=== PATIENT | female | born 1955 | race Caucasian/White ===

== ENCOUNTER 2017-12-31 19:03 | Emergency (ER) | payer OTHER ==
[~2017-12-31 19:03] MED LIST: CARAFATE1 G1 PO; COUMADIN3 MG PO; DEXILANT; DEXILANT60 MG PO; FIORICET TABLE1 EACH PO; KEFLEX500 MG PO; LIDODERM700 MG TD; LISINOPRIL-HCT1 EAC3 PO; MULTIVITAMINS1 EAC7 PO; NASONEX17 GM NS; PATADAY2.5 ML OU; PHENERGAN25 M3 PO; POTASSIUM 25 M25 ME1; POTASSIUM CHLO10 ME1 PO; SULCRAFATE; TIZANIDINE HCL6 MG PO; WARFARIN SODIU7.5 MG PO; Z.0.BENTYL20 MG; Z.0.BENTYL20 MG PO; Z.0.COUMADIN10 MG; Z.0.CRESTOR10 MG PO; Z.0.LEXAPRO20 MG PO; Z.0.SOMA350 MG; Z.0.SOTALOL80 MG PO; Z.0.ULTRAM50 MG PO; Z.0.VESICARE10 MG; Z.0.XANAX0.5 MG PO; Z.0.ZYRTEC10 MG PO; [UNRECOGNIZED DRUG - CODE]
--- OUTSIDE RECORDS SUMMARY | 2017-12-31 19:06 | XMS REPORT ---
Author Author [facility] Address Unknown Phone Unavailable Care Team Providers Care Shift Production Associate Name Role Phone LENORE YANG Unavailable Unavailable MILO GONZALEZ Unavailable Unavailable Problems This patient has no known problems. Allergies, Adverse Reactions, Alerts This patient has no known allergies or adverse reactions. Medications This patient has no known medications. Results Test Description Test Time Test Comments Text Results Atomic Results Result Comments CT, CTA CORONARY, W/ JARAD EVAL 2017-12-31 17:59:00 Addendum BeginsREPORT STATUS:A Addendum: I agree with the previously described non vascular findings by Dr. Nunez. Signed: Yordy Mackenzie MDReport Verified Date/Time: 12/31/2017 17:59:40 Reading Location: [place] [address] Angio Body Reading RoomAddendum EndsFINAL REPORT CT coronary angiography, 31 December 2017 INDICATION: This is a 62 -year old lady with abnormal stress test, performed before colonoscopy, presents for assessment. This study is performed in an attempt to avoid an invasive procedure. Patient has no history of chest pain and can walk up to one mild without symptoms. However, lately, due to the increasing temperature, and injury of the knee, patient has not been walking that much. Technique: Spiral acquisition before and during intravenous contrast administration using a Eun multidetector CT scanner. Multi-planar 3-D volume-rendering reconstruction was performed using an independent workstation interactively by the interpreting physician as well as the 3-D specialist for optimal visualisation of the coronary anatomy. Consecutive thin slices (< 1mm) were obtained. Arrival heart rate was suboptimal, of at least 78 bpm. Patient takes sotalol 80 mg twice a day regularly. Due to borderline blood pressure, nitroglycerin was not given. Heart rate was still persistently 68. Per minute and pulsing window has to be widened. Medication administration: Oral metoprolol 175 mg;IV metoprolol 20 mg;S /L nitroglyercin 0 mg. Please refer to the contrast sheet scanned in the EPIC system for the amount and route of contrast given. This exam was performed according to our departmental dose-optimisation programme, which includes automated exposure control, adjustment of the mA and/or kV according to patient size and/or use of iterative reconstruction technique. Dose modulation, iterative reconstruction, and/or weight based adjustment of the mA/kV was utilized to reduce the radiation dose to as low as reasonably achievable. FINDINGS: VASCULAR: An electronic device body is identified in the left upper chest with pacing leads identified in the right-sided cardiac chambers. An ICD lead is identified in the RV. The thoracic aorta is normal in course, calibre, contour. No ectasia or aneurysmal dilation is present. There is no acute aortic pathology, specifically, there is no dissection, contained rupture, and intramural hematoma. The arch vessel branching pattern is normal. The central pulmonary artery is normal in calibre. The left ventricle is normal in size. Mild left atrial prominence is identified. There is normal atrio-ventricular and ventriculo-arterial concordance, and systemic and pulmonary venous return. The pericardium is normal appearance. There is no evidence of pericardial effusion. Calcium score and high-resolution, ECG synchronized computed tomography of the heart with attention to the coronary arteries was performed. Coronary calcification was analyzed using the [employer] system software. These are the results of the calcium score evaluation (bqykwvemy=683 HU): LM:=0 LAD:=0 LCX:=39 RCA:= 25 Agatston:=64 Reference ranges for calcium scores are provided as follows ( Thomson Clin Proc 1999; 74: 243-252): 0-10: minimal calcium 11-100: mild calcium 101-400 moderate calcium > 400 significant calcium The calcium score places patient between 50th to 75th percentile for her age group, using the THOMAS database. The coronary arteries have normal origins. The left main coronary artery arises from the left sinus of Valsalva and give rise to the left anterior descending of the left circumflex arteries in the normal fashion. The right coronary artery arises from the right sinus of Valsalva. The left main coronary artery is widely patent. The proximal, mid, and distal LAD is patent with no stenosis identified. However, as nitroglycerin was not given, the distal LAD near the apex is a small calibre vessel. There is likely a short segment superficial myocardial bridging at the juncture of the mid LAD, common finding in current era of multidetector CT. Two small diagonal arteries are seen that are widely patent proximally. The left circumflex artery is nondominant. Scattered calcific atherosclerosis is along the course of the LCx, eccentrically located, with no no stenosis identified.. A first OM branch is seen that is small in size. The right coronary artery is a dominant vessel. During systole, part of the right coronary artery is obscured by the pacemaker lead. At this segment, it is much better seen by multiphasic reconstruction using the 40% reconstruction. No stenosis is seen. Some scattered calcification is seen in the mid RCA, with no stenosis identified. The PDA is widely patent proximally. The PL branch is also widely patent proximally, supplying the inferolateral wall. NON-VASCULAR: The visualised thyroid gland appears unremarkable. The chest wall and mediastinum appears unremarkable. No significant adenopathy is identified. In the lung windows, no obvious endobronchial lesion is seen, and no pleural effusion is identified. Some subsegmental atelectatic changes identified especially in the left lower lobe, , as well as near the lingula region, for example at image 29 of the lower chest series. Overall, no suspicious pulmonary nodule is appreciated. Calcified granuloma is identified in the right lower lobe at the seen in the calcium score series. Limited images of the upper abdomen reveals no gross abnormality. A degree of fatty infiltration is identified with precontrast Hounsfield unit less than 40 in the liver. No acute bony pathology is identified. CONCLUSIONS: 1. Quantitative coronary artery calcium Agatston score of 64. The calcium score places patient between 50th to 75th percentile for her age group, using the THOMAS database. Mild and scattered calcification is seen in the LCx and RCA territories. 2. Normal coronary artery origins. The major epicardial coronary arteries including the left main coronary artery, the left anterior descending artery, left circumflex artery, and the right coronary artery are widely patent with no focal stenosis. Only scattered coronary artery calcification is seen indicating the presence of early atherosclerosis. The data will be sent for CT analysis, by an independent third constitution party vendor. Should the data be accepted for postprocessing, the result would be sent to [email or web address] when available. The pacemaker lead limits assessment and may cause the data could be rejected. 3. No acute pulmonary pathology. Evidence of prior granulomatous disease. 4. Normal thoracic aorta. No ectasia or aneurysmal dilation is seen. 5. Other findings as described above. Hepatic steatosis. 6. The non-vascular findings will be reviewed by the Printing Table Hand Radiologist and addendum will be added as needed. Signed: [place] uNnezeport Verified Date/Time: 12/31/2017 16:52:08 Reading Location: [place] [address] Cardiology MRI -CREATININE 2017-12-31 14:01:00 POC-CREATININE (BEAKER) (test pnfs=4285) 0.6 mg/dL 0.6-1.3 [address]ED [address] [address] POC-EGFR (BEAKER) (test hutb=6603) 102 mL/min/1.73M2 POCT-GLUCOSE [id number] 08:29:00* Test Item Value Reference Range Comments POC-GLUCOSE METER (BEAKER) (test wios=5431) 113 mg/dL 70-110 TESTED AT [place] [id number] [facility] [address] CREATINE KINASE (CK), TOTAL AND [id number] 06:06:00* Test Item Value Reference Range Comments CREATINE KINASE TOTAL (BEAKER) (test bozw=008) 44 U/L 29-200 CREATINE KINASE-MB (BEAKER) (test kmhk=344) 0.4 ng/mL 0.0-6.6 CREATINE KINASE-MB INDEX (BEAKER) (test fkye=900) 0.9 % CK-MB Reference Range:<6.7 Normal6.7-10.0 Borderline>10.0 AbnormalTROPONIN [id number] 06:06:00* Test Item Value Reference Range Comments TROPONIN I (BEAKER) (test fnft=487) < ng/mL 0.00-0.03 Troponin I (TnI) levels must be interpreted in the context of the presenting symptoms and the clinical findings. Elevated TnI levels indicate myocardial damage, but are not specific for ischemic heart disease. Elevated TnI levels are seen in patients with other cardiac conditions (including myocarditis and congestive heart failure), and slight TnI elevations occur in patients with other conditions, including sepsis, renal failure, acidosis, acute neurological disease, and persistent tachyarrhythmia.PROTHROMBIN TIME/[id number] 05:31:00 * Test Item Value Reference Range Comments PROTIME (ERMA) (test feer=141) 27.1 seconds 11.7-14.7 INR (BEAKER) (test jdwg=981) 2.5 <=5.9 RECOMMENDED COUMADIN/WARFARIN INR THERAPY RANGESSTANDARD DOSE: 2.0 - 3.0 Includes: PROPHYLAXIS for venous thrombosis, systemic embolization; TREATMENT for venous thrombosis and/or pulmonary embolus.HIGH RISK: Target INR is 2.5-3.5 for patients with mechanical heart valves.CREATINE KINASE (CK), TOTAL AND [id number] 20:46:00* Test Item Value Reference Range Comments CREATINE KINASE TOTAL (BEAKER) (test fzwc=170) 53 U/L 29-200 CREATINE KINASE-MB (BEAKER) (test etly=387) 0.4 ng/mL 0.0-6.6 CREATINE KINASE-MB INDEX (ADITYAAKER) (test eksb=950) 0.8 % CK-MB Reference Range:<6.7 Normal6.7-10.0 Borderline>10.0 AbnormalTROPONIN [id number] 20:46:00* Test Item Value Reference Range Comments TROPONIN I (ERMA) (test ozih=274) 0.01 ng/mL 0.00-0.03 Troponin I (TnI) levels must be interpreted in the context of the presenting symptoms and the clinical findings. Elevated TnI levels indicate myocardial damage, but are not specific for ischemic heart disease. Elevated TnI levels are seen in patients with other cardiac conditions (including myocarditis and congestive heart failure), and slight TnI elevations occur in patients with other conditions, including sepsis, renal failure, acidosis, acute neurological disease, and persistent tachyarrhythmia.B-TYPE NATRIURETIC FACTOR (BNP) 20:41:00* Test Item Value Reference Range Comments B-TYPE NATRIURETIC PEPTIDE (BEAKER) (test aqbu=511) 19 pg/mL 0-100 [id number] 20:38:00* Test Item Value Reference Range Comments MAGNESIUM (BEAKER) (test pmge=168) 2.3 mg/dL 1.6-2.6 BASIC METABOLIC [id number] 20:38:00* Test Item Value Reference Range Comments SODIUM (BEAKER) (test nnhf=209) 134 meq/L 136-145 POTASSIUM (BEAKER) (test altn=138) 3.9 meq/L 3.5-5.1 CHLORIDE (BEAKER) (test huta=755) 97 meq/L 98-107 CO2 (BEAKER) (test iyar=874) 27 meq/L 22-29 BLOOD UREA NITROGEN (BEAKER) (test hfte=094) 13 mg/dL 7-21 CREATININE (BEAKER) (test ztoe=089) 0.78 mg/dL 0.57-1.25 GLUCOSE RANDOM (BEAKER) (test auxl=840) 98 mg/dL 70-105 CALCIUM (BEAKER) (test bbxz=030) 9.8 mg/dL 8.4-10.2 EGFR (BEAKER) (test vbsk=9010) 75 mL/min/1.73 sq m ESTIMATED GFR IS NOT ACCURATE CREATININE CLEARANCE IN PREDICTING GLOMERULAR FILTRATION RATE. ESTIMATED GFR IS NOT APPLICABLE FOR DIALYSIS PATIENTS. RAD, CHEST, 1 VIEW, NON [id number] 20:32:00Reason for exam:->SHORTNESS OF BREATHReason for exam:->CHEST PAINIs the patient ?->NoFINAL REPORT Chest, 1 view. History: Shortness of breath. Comparison: 11/20/2008. Discussion: There is left-sided dual lead AICD in stable position. The trachea is midline. The lungs are symmetrically expanded without evidence for focal consolidation, pneumothorax, or significant pleural effusion. The cardiomediastinal silhouette is stable in appearance. No acute osseous abnormality is identified. IMPRESSION: No acute cardiopulmonary process identified. Signed: Yordy Mackenzie MDReport Verified Date/Time: 12/23/2017 20:32 :18 Reading Location: [address] Consult Reading Room /[id number] 20:28:00 * Test Item Value Reference Range Comments PROTIME (BEAKER) (test nrmu=074) 25.8 seconds 11.7-14.7 INR (BEAKER) (test ccya=331) 2.4 <=5.9 PARTIAL THROMBOPLASTIN TIME (BEAKER) (test nwwa=726) 38.4 seconds 22.5-36.0 RECOMMENDED COUMADIN/WARFARIN INR THERAPY RANGESSTANDARD DOSE: 2.0 - 3.0 Includes: PROPHYLAXIS for venous thrombosis, systemic embolization; TREATMENT for venous thrombosis and/or pulmonary embolus.HIGH RISK: Target INR is 2.5-3.5 for patients with mechanical heart valves.CBC W/PLT COUNT & AUTO [id number] 20:19:00* Test Item Value Reference Range Comments WHITE BLOOD CELL COUNT (BEAKER) (test zgip=859) 7.6 K/ L 3.5-10.5 RED BLOOD CELL COUNT (BEAKER) (test rhwa=833) 4.50 M/ L 3.93-5.22 HEMOGLOBIN (BEAKER) (test qmcz=510) 13.6 GM/DL 11.2-15.7 HEMATOCRIT (BEAKER) (test rnuq=281) 41.4 % 34.1-44.9 MEAN CORPUSCULAR VOLUME (BEAKER) (test zbzz=536) 92.0 fL 79.4-94.8 MEAN CORPUSCULAR HEMOGLOBIN (BEAKER) (test vfzk=155) 30.2 pg 25.6-32.2 MEAN CORPUSCULAR HEMOGLOBIN CONC (BEAKER) (test efig=644) 32.9 GM/DL 32.2- 35.5 RED CELL DISTRIBUTION WIDTH (BEAKER) (test paeh=400) 13.1 % 11.7-14.4 PLATELET COUNT (BEAKER) (test nihz=506) 317 K/CU MM 150-450 MEAN PLATELET VOLUME (BEAKER) (test kxja=166) 9.3 fL 9.4-12.3 NUCLEATED RED BLOOD CELLS (BEAKER) (test vrap=056) 0 /100 WBC 0-0 NEUTROPHILS RELATIVE PERCENT (BEAKER) (test unkq=320) 46 % LYMPHOCYTES RELATIVE PERCENT (BEAKER) (test iurw=621) 37 % MONOCYTES RELATIVE PERCENT (BEAKER) (test qwol=575) 12 % EOSINOPHILS RELATIVE PERCENT (BEAKER) (test setd=347) 4 % BASOPHILS RELATIVE PERCENT (BEAKER) (test eyvi=212) 1 % NEUTROPHILS ABSOLUTE COUNT (BEAKER) (test avrw=176) 3.51 K/ L 1.56-6.13 LYMPHOCYTES ABSOLUTE COUNT (BEAKER) (test mrng=029) 2.83 K/ L 1.18-3.74 MONOCYTES ABSOLUTE COUNT (BEAKER) (test bnue=934) 0.88 K/ L 0.24-0.36 EOSINOPHILS ABSOLUTE COUNT (BEAKER) (test hamx=875) 0.29 K/ L 0.04-0.36 BASOPHILS ABSOLUTE COUNT (BEAKER) (test kknh=684) 0.06 K/ L 0.01-0.08 IMMATURE GRANULOCYTES-RELATIVE PERCENT (BEAKER) (test vvrd=4797) 0 % 0-1
--- OUTSIDE RECORDS SUMMARY | 2017-12-31 19:06 | XMS REPORT | Clinical Summary ---
Author Author JOHNY [facility] Address Unknown Phone Unavailable Care Team Providers Care Loan Broker Name Role Phone PCP Unavailable Allergies Active Allergy Reactions Severity Noted Date Comments Cephalosporins Hives High 12/23/2017 Niacin Anaphylaxis High 12/23/2017 Ezetimibe Anaphylaxis High 12/23/2017 Codeine Nausea And Vomiting 12/23/2017 Nsaids (Non-Steroidal Other (See Comments) 12/23/2017 Gi bleed Anti-Inflammatory Drug) Trospium Chloride Hives 12/23/2017 Aspirin Rash Low 12/23/2017 Erythromycin Rash Low 12/23/2017 Iodine And Iodide Rash Low 12/23/2017 Containing Products Current Medications Prescription Sig. Disp. Refills Start End Date Status Date lisinopril-hydroCHLOROthi Take 1 tablet by mouth Active azide daily. (PRINZIDE,ZESTORETIC) 20-25 mg per tablet sotalol AF (BETAPACE AF) Take 80 mg by mouth 2 Active 80 MG tablet (two) times daily. potassium chloride SA Take 10 mEq by mouth 2 Active (K-DUR,KLOR-CON) 10 MEQ (two) times daily. tablet warfarin (COUMADIN) 5 MG Take 10 mg by mouth every Active tablet Wednesday, Wednesday, Wednesday. warfarin (COUMADIN) 7.5 Take 7.5 mg by mouth 4 Active MG tablet (four) times daily Wednesday,Wednesday, and Wednesday . rosuvastatin (CRESTOR) 5 Take 5 mg by mouth daily. Active MG tablet dexlansoprazole 60 mg Take 60 mg by mouth 2 Active capsule (two) times daily. sucralfate (CARAFATE) 1 Take 1 g by mouth 4 Active gram tablet (four) times daily. dicyclomine (BENTYL) 20 Take 20 mg by mouth 3 Active mg tablet (three) times daily. nortriptyline (PAMELOR) Take 50 mg by mouth Active 25 MG capsule nightly. DULoxetine (CYMBALTA) 30 Take 60 mg by mouth 2 Active MG capsule (two) times daily. ALPRAZolam (XANAX) 0.5 MG Take 0.5 mg by mouth 2 Active tablet (two) times daily as needed for Anxiety. traMADol (ULTRAM) 50 mg Take 50 mg by mouth every Active tablet 8 (eight) hours as needed for Pain (2 tablets). TiZANidine (ZANAFLEX) 6 Take 6 mg by mouth 3 Active MG capsule (three) times daily as needed for Muscle spasms. wmbyulby-qkgi-whm-folic Take by mouth. Active acid (SBTWVOMHQCQV-VJUZ-RCZIDA LS-FOLIC ACID) 3,500-18-0.4 unit-mg-mg Chew calcium carbonate Take 600 mg by mouth 2 Active (OS-JARAD) 600 mg calcium (two) times daily with (1,500 mg) Tab breakfast and dinner. mometasone (NASONEX) 50 2 sprays by Nasal route Active mcg/actuation nasal spray daily. dkiyiwpe-xhorridzl-fryiuw Place 1 drop into both Active ortisone (CORTISPORIN) eyes every night as 3.5-10,000-10 needed. mg-unit-mg/mL ophthalmic suspension Active Problems Problem Noted Date Shortness of breath 12/24/2017 Abnormal stress test 12/24/2017 Rhomboid muscle pain 12/24/2017 Encounters Date Type Specialty Care Team Description 12/31/2017 Hospital Radiology John Giang MD Positive cardiac stress Encounter test;Hypertension, unspecified type 12/28/2017 Outside Orders Central Scheduling John Giang MD Positive cardiac stress test (Primary Dx);Hypertension, unspecified type 12/24/2017 Orders Only General Internal Medicine 12[facility] - Dipak Fields MD (Primary Dx);Rhomboid 12/24/2017 muscle pain;Shortness of breath after 12/30/2016 Social History Tobacco Use Types Packs/Day Years Used Date Never Smoker Smokeless Tobacco: Never Used Alcohol Use Drinks/Week oz/Week Comments No Sex Assigned at Date Recorded Not on file Last Filed Vital Signs Vital Sign Reading Time Taken Blood Pressure 117/74 12/31/2017 4:00 PM CDT Pulse 64 12/31/2017 4:00 PM CDT Temperature 36.7 C (98.1 F) 12/31/2017 1:10 PM CDT Respiratory Rate 17 12/31/2017 2:25 PM CDT Oxygen Saturation 95% 12/31/2017 2:25 PM CDT Inhaled Oxygen - - Concentration Weight 87.3 kg (192 lb 6.4 oz) 12/31/2017 1:10 PM CDT Height 170.2 cm (5' 7") 12/31/2017 1:10 PM CDT Body Mass Index 30.13 12/31/2017 1:10 PM CDT Plan of Treatment Not on file Results * CTA heart coronary with calcium evaluation (12/31/2017 4:15 PM) Specimen Performing Laboratory [employer] Narrative Addendum Begins REPORT STATUS:A Addendum: I agree with the previously described non vascular findings by Dr. Nunez. Signed: Yordy Mackenzie MD Report Verified Date/Time:12/31/2017 17:59:40 Reading Location: [place] [address] Angio Body Reading Room Addendum Ends FINAL REPORT CT coronary angiography, 31 December 2017 [...] specialist for optimal visualisation of the coronary anatomy.Consecutive thin slices (< 1mm) were obtained. Arrival heart rate was suboptimal, of at least 78 bpm. Patient takes sotalol 80 mg twice a day regularly. Due to borderline blood pressure, nitroglycerin was not given. Heart rate was still persistently 68. Per minute and pulsing window has to be widened. Medication administration: Oral metoprolol 175 mg; IV metoprolol 20 mg; S/L nitroglyercin 0 mg. Please refer to the [...] contour. No ectasia or aneurysmal dilation is present.There is no acute aortic pathology, specifically, there is no dissection, contained rupture, and intramural hematoma.The arch vessel branching pattern is normal. The central pulmonary artery is normal in calibre. The left ventricle is normal in size. Mild left atrial prominence is identified. There is normal atrio-ventricular and ventriculo-arterial concordance, and systemic and pulmonary venous return.The pericardium is normal appearance. There is no evidence of pericardial effusion. Calcium score and high-resolution, ECG synchronized computed tomography of the heart with attention to the coronary arteries was performed. Coronary calcification was analyzed using the [employer] system software. These are the results of the calcium score evaluation (kkvkeqnal=660 HU): LM:=0 LAD:=0 LCX:=39 RCA:=25 Agatston:=64 Reference ranges for calcium scores are provided as follows (Thomson Clin Proc 1999; 74: 243-252): 0-10: minimal calcium 11-100: mild calcium 101-400 moderate calcium > 400significant calcium The calcium score places patient between 50th to 75th percentile for her age group, using the THOMAS database. The coronary arteries have normal origins.The left main coronary artery arises from the [...] No acute bony pathology is identified. CONCLUSIONS: 1.Quantitative coronary artery calcium Agatston score of 64. The calcium score places patient between 50th to 75th percentile for her age group, using the THOMAS database. Mild and scattered calcification is seen in the LCx and RCA territories. 2.Normal coronary artery origins. The major epicardial coronary arteries including the left main coronary artery, the left anterior descending artery, left circumflex artery, and the right coronary artery are widely patent with no focal stenosis. Only scattered coronary artery calcification is seen indicating the presence of early atherosclerosis. The data will be sent for CT analysis, by an independent third democrat vendor. Should the data be accepted for postprocessing, the result would be sent to PACS/33Across when available. The pacemaker lead limits assessment and may cause the data could be rejected. 3.No acute pulmonary pathology. Evidence of prior granulomatous disease. 4.Normal thoracic aorta. No ectasia or aneurysmal dilation is seen. 5.Other findings as described above. Hepatic steatosis. 6.The non-vascular findings will be reviewed by the Drawer In Stitch Bonding Machine Radiologist and addendum will be added as needed. Signed: Austin Nunez MD Report Verified Date/Time:12/31/2017 16:52:08 Reading Location: [place] [address] Cardiology MRI Procedure Note Interface, External Ris In - 12/31/2017 6:01 PM CDT Addendum Begins REPORT STATUS:A Addendum: I agree with the previously described non vascular findings by Dr. Nunez. Signed: Yordy Mackenzie MD Report Verified Date/Time: 12/31/2017 17:59:40 Reading Location: [place] [address] Angio Body Reading Room Addendum Ends FINAL REPORT CT coronary angiography, 31 December 2017 [...] be widened. Medication administration: Oral metoprolol 175 mg; IV metoprolol 20 mg; S/L nitroglyercin 0 mg. Please refer to the [...] performed. Coronary calcification was analyzed using the [employer] system software. These are the results of the calcium score evaluation (meaqurhxt=193 HU): LM:=0 LAD:=0 LCX:=39 RCA:=25 Agatston:=64 Reference ranges for calcium scores are provided as follows (Thomson Clin Proc 1999; 74: 243-252): 0-10: minimal [...] for CT analysis, by an independent third democrat vendor. Should the data be accepted for postprocessing, the result would be sent to PACS/33Across when available. The pacemaker lead limits assessment and may cause the data could be rejected. 3. No acute pulmonary pathology. Evidence of prior granulomatous disease. 4. Normal thoracic aorta. No ectasia or aneurysmal dilation is seen. 5. Other findings as described above. Hepatic steatosis. 6. The non-vascular findings will be reviewed by the Drawer In Stitch Bonding Machine Radiologist and addendum will be added as needed. Signed: Austin Nunez MD Report Verified Date/Time: 12/31/2017 16:52:08 Reading Location: [place] [address] Cardiology MRI * POC-Creatinine (12/31/2017 1:58 PM) Component Value Ref Range POC-Creatinine 0.6Comment: TESTED AT [address] 0.6 - 1.3 mg/[place] [address] POC-EGFR 102 mL/min/1.73M2 Specimen Performing Laboratory Blood [facility] [address] [address] * ARRYTHMIA IMPLANT REPORT - SCAN (12/27/2017 1:00 PM) * ECHOCARDIOGRAM REPORT - SCAN (12/24/2017 4:20 PM) * 2D Echo W/Doppler(CW/PW/Color) (12/24/2017 10:39 AM) Component Value Ref Range Ejection Fraction Specimen Performing Laboratory [facility] Narrative Transthoracic Echocardiography Report (TTE) Demographics Patient Name Rima CORONEL of Study 12/24/2017 DANE [id number] Female Visit Number [id number] Unknown [id number] Room Number 1142 Number Date of Birth1955Referring Physician Age62 year(s)Band Tacker Unruly Fitch Interpreting Physician SHAI York Procedure Type of Study TTE procedure:2DECHO W DOPPLER(CW/PW/COLOR) Indications:Dyspnea/SOB and Mitral valve prolapse. Height: 67 inches Weight: 87.09 kg (192 lbs) BSA: 1.99 m^2 BMI: 30.07 kg/m^2 Summary The left ventricle is chamber size (by PSLAX dimension) is normal (female - LVIDd 3.8-5.2cm) . No evidence of LV hypertrophy. All of the LV segments contract normally . All of the LV segments contract normally . Septal and apical motion is abnormal, likely related to conduction abnormality . Global LV systolic function normal . Estimated LVEF by qualitative assessment is normal (55-60%) . MVP present, MV prolapse affects both the anterior and posterior leaflet . Unable reliably assess MR severity, due to poor windows but appears mild to moderate by limited views. Unable to estimate peak systolic PA pressure; inadequate TR velocity signal. Signature Findings Left Ventricle The left ventricle is chamber size (by PSLAX dimension) is normal (female - LVIDd 3.8-5.2cm) . No evidence of LV hypertrophy. All of the LV segments contract normally . All of the LV segments contract normally . Septal and apical motion is abnormal, likely related to conduction abnormality . Global LV systolic function normal . Estimated LVEF by qualitative assessment is normal (55-60%) . Left AtriumLA size is severely enlarged (>48 ml/m2) . Right VentricleRV pacing wire is visualized . The right ventricular chamber size and systolic function are within normal limits. Right Atrium RA pacing wire is visualized . RA cavity size is normal . Aortic Valve Normal AoV structure and function. Mitral Valve Mild MV leaflet thickening. MVP present, MV prolapse affects both the anterior and posterior leaflet . Unable reliably assess MR severity, due to poor windows but appears mild to moderate by limited views. Tricuspid ValveA trace of tricuspid regurgitation. Unable to estimate peak systolic PA pressure; inadequate TR velocity signal. Pulmonic Valve Normal PV structure and function by limited views and Doppler. AortaAortic root size (SInus of Valsalva diameter) is normal . PericardiumNo evidence of pericardial effusion. IVC/SVC/PA/PV/PleuralThe estimated RA pressure by IVC dynamics 0-5 mmHg . Chambers/Structures Left Atrium LA Dimension: 3.82 cmLA Area: 22.51 cm^2 LA Volume: 79.54 ml LA Vol. Index: 40 ml/m^2 Left Ventricle LVIDd: 4.43 cm LV Septum Diastolic: 0.98 cm LV PW Diastolic: 0.97 cm Aorta Ao Root S of Palma.: 3.2 cm Doppler/Quantitative Measurements LVOT Peak Velocity: 1.01 m/s Peak Gradient: 4.04 mmHg Mean Velocity: 0.6 m/sMean Gradient: 1.83 mmHg LVOT VTI: 21.97 cm Procedure Note Interface, External Ris In - 12/24/2017 3:52 PM CDT Transthoracic Echocardiography Report (TTE) Demographics Patient Name MARGA CORONEL Date of Study 12/24/2017 DANE Gender Female Visit Number [id number] Race Unknown Room Number 1142 Number Date of 1955 Referring Physician Age 62 year(s) Band Tacker Blow Molder Abel Fitch Interpreting Physician SHAI York Procedure Type of Study TTE procedure:2DECHO W DOPPLER(CW/PW/COLOR) Indications:Dyspnea/SOB and Mitral valve prolapse. Height: 67 inches Weight: 87.09 kg (192 lbs) BSA: 1.99 m^2 BMI: 30.07 kg/m^2 Summary The left ventricle is chamber size (by PSLAX dimension) is normal (female - LVIDd 3.8-5.2cm) . No evidence of LV hypertrophy. All of the LV segments contract normally . All of the LV segments contract normally . Septal and apical motion is abnormal, likely related to conduction abnormality . Global LV systolic function normal . Estimated LVEF by qualitative assessment is normal (55-60%) . MVP present, MV prolapse affects both the anterior and posterior leaflet . Unable reliably assess MR severity, due to poor windows but appears mild to moderate by limited views. Unable to estimate peak systolic PA pressure; inadequate TR velocity signal. Signature Findings Left Ventricle The left ventricle is chamber size (by PSLAX dimension) is normal (female - LVIDd 3.8-5.2cm) . No evidence of LV hypertrophy. All of the LV segments contract normally . All of the LV segments contract normally . Septal and apical motion is abnormal, likely related to conduction abnormality . Global LV systolic function normal . Estimated LVEF by qualitative assessment is normal (55-60%) . Left Atrium LA size is severely enlarged (>48 ml/m2) . Right Ventricle RV pacing wire is visualized . The right ventricular chamber size and systolic function are within normal limits. Right Atrium RA pacing wire is visualized . RA cavity size is normal . Aortic Valve Normal AoV structure and function. Mitral Valve Mild MV leaflet thickening. MVP present, MV prolapse affects both the anterior and posterior leaflet . Unable reliably assess MR severity, due to poor windows but appears mild to moderate by limited views. Tricuspid Valve A trace of tricuspid regurgitation. Unable to estimate peak systolic PA pressure; inadequate TR velocity signal. Pulmonic Valve Normal PV structure and function by limited views and Doppler. Aorta Aortic root size (SInus of Valsalva diameter) is normal . Pericardium No evidence of pericardial effusion. IVC/SVC/PA/PV/Pleural The estimated RA pressure by IVC dynamics 0-5 mmHg . Chambers/Structures Left Atrium LA Dimension: 3.82 cm LA Area: 22.51 cm^2 LA Volume: 79.54 ml LA Vol. Index: 40 ml/m^2 Left Ventricle LVIDd: 4.43 cm LV Septum Diastolic: 0.98 cm LV PW Diastolic: 0.97 cm Aorta Ao Root S of Palma.: 3.2 cm Doppler/Quantitative Measurements LVOT Peak Velocity: 1.01 m/s Peak Gradient: 4.04 mmHg Mean Velocity: 0.6 m/s Mean Gradient: 1.83 mmHg LVOT VTI: 21.97 cm * POC-Glucose meter (12/24/2017 8:03 AM) Component Value Ref Range POC-Glucose Meter 113 (H)Comment: TESTED AT [address] 70 - 110 mg /dL [facility] [address] Specimen Performing Laboratory Blood [address] [address] * Troponin I (12/24/2017 4:59 AM) Only the most recent of 2 results within the time period is included. Component Value Ref Range Troponin I <0.01 0.00 - 0.03 ng/mL Specimen Performing Laboratory Blood - Arm, [address] [address] Narrative Troponin I (TnI) levels must be interpreted [...] failure, acidosis, acute neurological disease, and persistent tachyarrhythmia. * Prothrombin time/INR (12/24/2017 4:59 AM) Component Value Ref Range Protime 27.1 (H) 11.7 - 14.7 seconds INR 2.5 <=5.9 Specimen Performing Laboratory Blood - Arm, [address] [address] Narrative RECOMMENDED COUMADIN/WARFARIN INR THERAPY RANGES STANDARD DOSE: 2.0 - 3.0 Includes: PROPHYLAXIS for venous thrombosis, systemic embolization; TREATMENT for venous thrombosis and/or pulmonary embolus. HIGH RISK: Target INR is 2.5-3.5 for patients with mechanical heart valves. * Creatine Kinase (CK), Total and MB (12/24/2017 4:59 AM) Only the most recent of 2 results within the time period is included. Component Value Ref Range Total CK 44 29 - 200 U/L CK-MB 0.4 0.0 - 6.6 ng/mL MB Relative Index 0.9 % Specimen Performing Laboratory Blood - Arm, [address] [address] Narrative CK-MB Reference Range: <6.7Normal 6.7-10.0Borderline >10.0 Abnormal * ECG 12 lead (12/24/2017 4:44 AM) Only the most recent of 2 results within the time period is included. Specimen Performing Laboratory [facility] Narrative Ventricular Rate 59 BPM Atrial Rate 59 BPM P-R Interval 220 ms QRS Duration 122 ms Q-T Interval 468 ms QTC Calculation(Bazett) 463 ms P Clarkson 79 degrees R Clarkson 4 degrees T Clarkson 30 degrees Sinus bradycardia with 1st degree A-V block Non-specific intra-ventricular conduction delay Borderline ECG When compared with ECG of 20-DEC-2009 13:11, No significant change was found Confirmed by MD TANI, IHAB ([id number]) on 12/24/2017 2:03:57 PM Procedure Note Interface, External Ris In - 12/24/2017 2:04 PM CDT Ventricular Rate 59 BPM Atrial Rate 59 BPM P-R Interval 220 ms QRS Duration 122 ms Q-T Interval 468 ms QTC Calculation(Bazett) 463 ms P Clarkson 79 degrees R Clarkson 4 degrees T Clarkson 30 degrees Sinus bradycardia with 1st degree A-V block Non-specific intra-ventricular conduction delay Borderline ECG When compared with ECG of 20-DEC-2009 13:11, No significant change was found Confirmed by MD TANI, IHAB ([id number]) on 12/24/2017 2:03:57 PM * ED ECG Interpretation (12/24/2017 1:24 AM) Narrative Milo Gonzalez MD 12/24/20171:24 AM ECG/EKG Interpretation Date/Time: 12/24/2017 12:18 AM Performed by: MILO GONZALEZ Authorized by: MILO GONZALEZ The ECG was interpreted by ED physician. This ECG was not compared with previous ECG(s).The ECG is interpreted as sinus rhythm. Abnormal conduction noted: 1st degree. Clarkson is normal. Clinical Impression: non-specific ECGECG reviewed and does not meet STEMI criteria. Patient tolerance: Patient tolerated the procedure well with no immediate complications * XR chest 1 view portable / bedside (12/23/2017 8:27 PM) Specimen Performing Laboratory [facility] Narrative FINAL REPORT Chest, 1 view. History: Shortness of breath. Comparison: 11/20/2008. Discussion: There is left-sided dual lead AICD in stable position. The trachea is midline. The lungs are symmetrically expanded without evidence for focal consolidation, pneumothorax, or significant pleural effusion. The cardiomediastinal silhouette is stable in appearance. No acute osseous abnormality is identified. IMPRESSION: No acute cardiopulmonary process identified. Signed: Yordy Mackenzie MD Report Verified Date/Time:12/23/2017 20:32:18 Reading Location: [facility] [id number] Consult Reading Room Procedure Note Interface, External Ris In - 12/23/2017 8:34 PM CDT FINAL REPORT Chest, 1 view. History: Shortness of breath. Comparison: 11/20/2008. Discussion: There is left-sided dual lead AICD in stable position. The trachea is midline. The lungs are symmetrically expanded without evidence for focal consolidation, pneumothorax, or significant pleural effusion. The cardiomediastinal silhouette is stable in appearance. No acute osseous abnormality is identified. IMPRESSION: No acute cardiopulmonary process identified. Signed: Yordy Mackenzie MD Report Verified Date/Time: 12/23/2017 20:32:18 Reading Location: [facility] C013W Consult Reading Room * PT/PTT (12/23/2017 8:09 PM) Component Value Ref Range Protime 25.8 (H) 11.7 - 14.7 seconds INR 2.4 <=5.9 PTT 38.4 (H) 22.5 - 36.0 seconds Specimen Performing [place] [address] Narrative RECOMMENDED COUMADIN/WARFARIN INR THERAPY RANGES STANDARD DOSE: 2.0 - 3.0 Includes: PROPHYLAXIS for venous thrombosis, systemic embolization; TREATMENT for venous thrombosis and/or pulmonary embolus. HIGH RISK: Target INR is 2.5-3.5 for patients with mechanical heart valves. * CBC with platelet count + automated diff (12/23/2017 8:09 PM) Component Value Ref Range WBC 7.6 3.5 - 10.5 K/ L RBC 4.50 3.93 - 5.22 M/ L Hemoglobin 13.6 11.2 - 15.7 GM/DL Hematocrit 41.4 34.1 - 44.9 % MCV 92.0 79.4 - 94.8 fL MCH 30.2 25.6 - 32.2 pg MCHC 32.9 32.2 - 35.5 GM/DL RDW 13.1 11.7 - 14.4 % Platelets 317 150 - 450 K/CU MM MPV 9.3 (L) 9.4 - 12.3 fL nRBC 0 0 - 0 /100 WBC % Neutros 46 % % Lymphs 37 % % Monos 12 % % Eos 4 % % Baso 1 % # Neutros 3.51 1.56 - 6.13 K/ L # Lymphs 2.83 1.18 - 3.74 K/ L # Monos 0.88 (H) 0.24 - 0.36 K/ L # Eos 0.29 0.04 - 0.36 K/ L # Baso 0.06 0.01 - 0.08 K/ L Immature 0 0 - 1 % Granulocytes-Relative Specimen [place]forming [place] [address] * CBC with platelet count + automated diff (12/23/2017 8:09 PM) Specimen Performing Laboratory Blood Narrative The following orders were created for panel order CBC with platelet count + automated diff. Procedure Abnormality Status --------- - ------ CBC with platelet count ...[[id number]]AbnormalFinal result Please view results for these tests on the individual orders. * B-type natriuretic peptide (12/23/2017 8:09 PM) Component Value Ref Range BNP 19 0 - 100 pg/mL Specimen Performing Laboratory [address] [address] * Magnesium (12/23/2017 8:09 PM) Component Value Ref Range Magnesium 2.3 1.6 - 2.6 mg/dL Specimen Performing Laboratory [address] [address] * Basic Metabolic Panel (12/23/2017 8:09 PM) Component Value Ref Range Sodium 134 (L) 136 - 145 meq/L Potassium 3.9 3.5 - 5.1 meq/L Chloride 97 (L) 98 - 107 meq/L CO2 27 22 - 29 meq/L BUN 13 7 - 21 mg/dL Creatinine 0.78 0.57 - 1.25 mg/dL Glucose 98 70 - 105 mg/dL Calcium 9.8 8.4 - 10.2 mg/dL EGFR 75Comment: ESTIMATED GFR IS NOT ACCURATE mL/min/1.73 sq m CREATININE CLEARANCE IN PREDICTING GLOMERULAR FILTRATION RATE. ESTIMATED GFR IS NOT APPLICABLE FOR DIALYSIS PATIENTS. Specimen Performing Laboratory Blood [facility] [address] [address] after 12/30/2016
== END 2017-12-31 19:08 | disposition left against medical advice (07) ==
LOC: ER 19:03
DX: Z48.00 Encounter for change or removal of nonsurgical wound dressing (principal)

== ENCOUNTER → 2018-05-02 | Day surgery (SDC) | payer OTHER ==
[2018-04-27 15:15] LABS: BASOPHILS % 0.4 % (0.0-1.0); EOSINOPHILS # (AUTO) 0.3 (0.0-0.4); EOSINOPHILS % 5.8 % (0.0-6.0); HEMATOCRIT 36.6 % (34.2-44.1); HEMOGLOBIN 12.7 g/dL (12.0-16.0); LYMPHOCYTES # (AUTO) 1.9 (1.0-3.2); LYMPHOCYTES % 35.9 % (18.0-39.1); MEAN CORPUSCULAR HEMOGLOBIN 30.8 pg (28-32); MEAN CORPUSCULAR HGB CONC 34.7 g/dL (31-35); MEAN CORPUSCULAR VOLUME 88.8 fL (81-99); MONOCYTES # (AUTO) 0.5 (0.2-0.8); MONOCYTES % 10.1 % (4.4-11.3); NEUTROPHILS # (AUTO) 2.5 (2.1-6.9); NEUTROPHILS % 47.6 % (38.7-80.0); PLATELET COUNT 295 x10e3/uL (140-360); RED BLOOD COUNT 4.12 x10e6/uL (3.6-5.1); RED CELL DISTRIBUTION WIDTH 13.8 % (11.7-14.4)
[~2018-05-02] MED LIST changes: +CALTRATE 600 W1 EACH PO; +CENTRUM SILVER1 EAC3 PO; +CYMBALTA30 MG PO; +EPHEDRINE SULFATE INJ 50 MG/10 ML SYR ONE; +FENTANYL CITRATE/PF 100MCG/2 ML INJ ONE; +HYOSCYAMINE SULFATE 0.5 MG/ML INJ ONE; +MIDAZOLAM HCL 5 MG/ML VIAL ONE; +MOMETASONE FURO30 ML INH; +NORTRIPTYLINE H50 MG PO; +PROPOFOL IV EMULSION 10 MG/ML 50 ML VIAL ONE; +SUCRALFATE1 GM PO; +WARFARIN SODIUM5 MG PO
[2018-05-02 12:19] VITALS: BP 104/69
--- NOTE | 2018-05-02 13:01 | Operative Report ---
DATE OF PROCEDURE: May 02, 2018 REFERRING PHYSICIAN: Dr. Jamison Bishop. PROCEDURES PERFORMED: 1. Esophagogastroduodenoscopy with esophageal dilatation and biopsies. 2. Colonoscopy with polypectomy and biopsies. INDICATIONS FOR ESOPHAGOGASTRODUODENOSCOPY: Dysphagia, nausea. INDICATIONS FOR COLONOSCOPY: History of colon polyps, diarrhea. MEDICATION: Patient was done under MAC. Please see anesthesiologist's note. PROCEDURE: With the patient in the left lateral decubitus position, the flexible fiberoptic Olympus gastroscope was introduced into the esophagus under direct visualization without any difficulty. There was some patchy erythema noted in the distal esophagus. There was a mild stricture noted at the GE junction, and that was dilated to a size 52-Bhut[place] Khan. The scope was then advanced with ease into the stomach. Mucosa overlying the antrum and the body revealed some patchy erythema and low-grade edema, and biopsies were obtained and sent to stain for H. pylori. Hyperplastic-appearing polyps were noted in the body of the stomach, and some were partially excised with the cold biopsy forceps. The pylorus appeared to be of normal contour and shape, was intubated with ease, and the scope was advanced all the way to the 2nd portion of the duodenum. The scope was then withdrawn slowly. Mucosa overlying the proximal 2nd portion grossly appeared to be within normal limits. Biopsies were obtained to rule out sprue. The mucosa overlying the duodenal bulb appeared to be within normal limits. The scope was then withdrawn back into the stomach and retroflexed, and the mucosa overlying the fundus and the cardia appeared to be within normal limits. The scope was then straightened out. The stomach was decompressed. The scope was subsequently withdrawn. Patient tolerated the procedure well. IMPRESSION: 1. Distal esophagitis, mild. 2. Esophageal stricture at gastroesophageal junction dilated to size 52-Bhutanese Khan. 3. Gastritis biopsied. Biopsies sent to stain for H. pylori. 4. Gastric polyps, hyperplastic-appearing, body, some partially excised with the cold biopsy forceps. PLAN: Follow up histology. Continue Dexilant 60 mg 1 p.o. b.i.d. The patient was then turned around and after adequate lubrication of the anal canal, a flexible fiberoptic Olympus colonoscope was inserted into the rectum with ease and advanced all the way to the cecum. The ileocecal valve was intubated, and the scope was advanced into the terminal ileum. Biopsies were obtained. The scope was then withdrawn back into the colon. It was then withdrawn slowly. Mucosa overlying the ascending colon grossly appeared to be within normal limits. There were some patchy inflammatory changes noted in the transverse colon as well as the descending and the sigmoid, and random biopsies were obtained. One polyp was hot biopsied from the descending colon. The scope was then retroflexed into the distal rectum and small internal hemorrhoids were noted, none of which was actively bleeding. The scope was then straightened out. It was subsequently withdrawn. Patient tolerated the procedure well. IMPRESSION: 1. Mild patchy left-sided colitis. 2. Descending colon polyp hot biopsied. 3. Internal hemorrhoids, none actively bleeding. PLAN: Follow up histology. Initiate VSL#3 one p.o. daily. Start Bentyl 10 mg 1 p.o. t.i.d. Patient might benefit from a followup colonoscopy in 3 to 5 years. Job#: [id number] EV cc:JAMISON BISHOP MD
--- OUTSIDE RECORDS SUMMARY | 2018-05-10 11:53 | XMS REPORT | Clinical Summary ---
Author Author JOHNY [facility] Address Unknown Phone Unavailable Care Team Providers Care Senior Account Clerk Name Role Phone PCP Unavailable Allergies Active [...] times daily as needed for Muscle spasms. rtshryuj-qbyb-ksw-folic Take by mouth. Active acid (AZEGUGXEMVQK-KUFZ-FQZZIV LS-FOLIC ACID) 3,500-18-0.4 unit-mg-mg Chew calcium carbonate Take 600 mg by mouth 2 Active (OS-JARAD) 600 mg calcium (two) times daily with (1,500 mg) Tab breakfast and dinner. mometasone (NASONEX) 50 2 sprays by Nasal route Active mcg/actuation nasal spray daily. wqbiqbon-szobsljur-begnkv Place 1 drop into both Active ortisone (CORTISPORIN) eyes every night as 3.5-10,000-10 needed. mg-unit-mg/mL ophthalmic suspension Active Problems Problem Noted Date Shortness of breath 12/24/2017 Abnormal stress test 12/24/2017 Rhomboid muscle pain 12/24/2017 Encounters Date Type Specialty Care Team Description 12/31/2017 [place] Bleeding at insertion site (Primary Dx);Anticoagulant long-term use;Leukocytosis, unspecified type 12/31/2017 Hospital Radiology John Giang MD Positive cardiac stress Encounter test;Hypertension, unspecified type 12/28/2017 Outside Orders Central Scheduling John Giang MD Positive cardiac stress test (Primary Dx);Hypertension, unspecified type 12/24/2017 Orders Only General Internal Medicine 12/23[facility] test - Dipak Fields MD (Primary Dx);Rhomboid 12/24/2017 muscle pain;Shortness of breath after 05/01/2017 Social History Tobacco Use Types Packs/Day Years Used Date Never Smoker Smokeless Tobacco: Never Used Alcohol Use Drinks/Week oz/Week Comments No Sex Assigned at Date Recorded Not on file Last Filed Vital Signs Vital Sign Reading Time Taken Blood Pressure 169/98 12/31/2017 7:49 PM CDT Pulse 75 12/31/2017 7:49 PM CDT Temperature 37.1 C (98.8 F) 12/31/2017 7:49 PM CDT Respiratory Rate 18 12/31/2017 7:49 PM CDT Oxygen Saturation 98% 12/31/2017 7:49 PM CDT Inhaled Oxygen - - Concentration Weight 87.1 kg (192 lb) 12/31/2017 7:49 PM CDT Height 170.2 cm (5' 7") 12/31/2017 7:49 PM CDT Body Mass Index 30.07 12/31/2017 7:49 PM CDT Plan of Treatment Not on file Results * PT/aPTT (12/31/2017 9:31 PM) Only the most recent of 2 results within the time period is included. Component Value Ref Range Protime 26.9 (H) 11.7 - 14.7 seconds INR 2.5 <=5.9 PTT 36.9 (H) 22.5 - 36.0 seconds Specimen Performing Laboratory Blood [facility] [address] [address] Narrative RECOMMENDED COUMADIN/WARFARIN INR THERAPY RANGES STANDARD DOSE: 2.0 - 3.0 Includes: PROPHYLAXIS for venous thrombosis, systemic embolization; TREATMENT for venous thrombosis and/or pulmonary embolus. HIGH RISK: Target INR is 2.5-3.5 for patients with mechanical heart valves. * CBC with platelet count + automated diff (12/31/2017 9:31 PM) Only the most recent of 2 results within the time period is included. Component Value Ref Range WBC 15.6 (H) 3.5 - 10.5 K/L RBC 4.36 3.93 - 5.22 M/L Hemoglobin 13.2 11.2 - 15.7 GM/DL Hematocrit 39.4 34.1 - 44.9 % MCV 90.4 79.4 - 94.8 fL MCH 30.3 25.6 - 32.2 pg MCHC 33.5 32.2 - 35.5 GM/DL RDW 13.0 11.7 - 14.4 % Platelets 334 150 - 450 K/CU MM MPV 9.3 (L) 9.4 - 12.3 fL nRBC 0 0 - 0 /100 WBC % Neutros 81 % % Lymphs 12 % % Monos 7 % % Eos 0 % % Baso 0 % # Neutros 12.65 (H) 1.56 - 6.13 K/L # Lymphs 1.82 1.18 - 3.74 K/L # Monos 1.04 (H) 0.24 - 0.36 K/L # Eos 0.00 (L) 0.04 - 0.36 K/L # Baso 0.01 0.01 - 0.08 K/L Immature 1 0 - 1 % Granulocytes-Relative Specimen Performing [place] [address] * CBC with platelet count + automated diff (12/31/2017 9:31 PM) Only the most recent of 2 results within the time period is included. Specimen Performing Laboratory Blood Narrative The following orders were created for panel order CBC with platelet count + automated diff. Procedure Abnormality Status --------- ------ CBC with platelet count ...[[id number]]AbnormalFinal result Please view results for these tests on the individual orders. * CTA heart coronary with calcium evaluation (12/31/2017 4:15 PM) Specimen Performing Laboratory [place] Narrative Addendum Begins REPORT STATUS:A Addendum: For billing requirement, an addendum needed to be dictated regarding the CT analysis (CT-FFR) performed by an independent third democrat vendor. The report is being scanned to PACS, and can also be seen in the media tab. Overall, the computer interpretation indicate no obstructive coronary artery disease is seen in the all three coronary territories. The final conclusion as well as the clinical interpretation remains unchanged. Signed: Austin Nunez MD Report Verified Date/Time:01/03/2018 18:29:21 Reading Location: [place] [address] Cardiology MRI Addendum Ends Addendum Begins REPORT STATUS:A Addendum: I agree with the previously described non vascular findings by Dr. Nunez. Signed: Yordy Mackenzie MD Report Verified Date/Time:12/31/2017 17:59:40 Reading Location: [place] [address] Angio Body Reading Room Addendum Ends FINAL [...] performed. Coronary calcification was analyzed using the TeaMobi system software. These are the results of the calcium score evaluation (pzoaxgkzq=255 HU): LM:=0 LAD:=0 LCX:=39 RCA:=25 Agatston:=64 Reference [...] postprocessing, the result would be sent to PACS/OyaGen when available. The pacemaker lead limits assessment and may cause the data could be rejected. 3.No acute pulmonary pathology. Evidence of prior granulomatous disease. 4.Normal thoracic aorta. No ectasia or aneurysmal dilation is seen. 5.Other findings as described above. Hepatic steatosis. 6.The non-vascular findings will be reviewed by the Community Sports Coordinator Radiologist and addendum will be added as needed. Signed: Austin Nunez MD Report Verified Date/Time:12/31/2017 16:52:08 Reading Location: [place] [address] Cardiology MRI Procedure Note Interface, External Ris In - 01/03/2018 6:31 PM CDT Addendum Begins REPORT STATUS:A Addendum: For billing requirement, an addendum needed to be dictated regarding the CT analysis (CT-FFR) performed by an independent third democrat vendor. The report is being scanned to PACS, and can also be seen in the media tab. Overall, the computer interpretation indicate no obstructive coronary artery disease is seen in the all three coronary territories. The final conclusion as well as the clinical interpretation remains unchanged. Signed: Austin Nunez MD Report Verified Date/Time: 01/03/2018 18:29:21 Reading Location: [place] [address] Cardiology MRI Addendum Ends Addendum Begins REPORT STATUS:A Addendum: I agree with the previously described non vascular findings by Dr. Nunez. Signed: Yordy Mackenzie MD Report Verified Date/Time: 12/31/2017 17:59:40 Reading Location: [facility] [address] Angio Body Reading Room Addendum Ends FINAL [...] performed. Coronary calcification was analyzed using the TeaMobi system software. These are the results of the calcium score evaluation (borylbdmk=223 HU): LM:=0 LAD:=0 LCX:=39 RCA:=25 Agatston:=64 Reference [...] postprocessing, the result would be sent to PACS/OyaGen when available. The pacemaker lead limits assessment and may cause the data could be rejected. 3. No acute pulmonary pathology. Evidence of prior granulomatous disease. 4. Normal thoracic aorta. No ectasia or aneurysmal dilation is seen. 5. Other findings as described above. Hepatic steatosis. 6. The non-vascular findings will be reviewed by the Community Sports Coordinator Radiologist and addendum will be added as needed. Signed: Austin Nunez MD Report Verified Date/Time: 12/31/2017 16:52:08 Reading Location: [place] [address] Cardiology MRI * POC-Creatinine (12/31/2017 1:58 PM) Component Value Ref Range POC-Creatinine 0.6Comment: TESTED AT [facility] [address] [place] [address] 0.6 - 1.3 mg/[place] [address] POC-EGFR 102 mL/min/1.73M2 Specimen Performing Laboratory Blood [facility] [address] [address] * ARRYTHMIA IMPLANT REPORT - SCAN (12/27/2017 1:00 PM) * ECHOCARDIOGRAM REPORT - SCAN (12/24/2017 4:20 PM) * 2D Echo W/Doppler(CW/PW/Color) (12/24/2017 10:39 AM) Component Value Ref Range Ejection Fraction Specimen Performing Laboratory [facility] CPACS Narrative Transthoracic Echocardiography Report (TTE) Demographics Patient Name Rima DELGADO of Study 12/24/2017 DANE [id number] Visit Number [id number] Room Number 1142 Number Date of Birth1955Referring Physician Age62 year(s)Real Estate Associate AnalystAlex Physician SHAI Kramer Procedure Type of Study TTE procedure:2DECHO W [...] Echocardiography Report (TTE) Demographics Patient Name MARGA DELGADO Date of Study 12/24/2017 DANE Gender Female Visit Number [id number] Race Unknown Room Number 1142 Number Date of 1955 Referring Physician Age 62 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 Component Value Ref Range Troponin I <0.01 0.00 - 0.03 ng/mL Specimen Performing Laboratory Blood - Arm, [address] [address] Narrative Troponin I (TnI) levels must be [...] <=5.9 Specimen Performing Laboratory Blood - [place], [address] [address] Narrative RECOMMENDED COUMADIN/WARFARIN INR THERAPY RANGES STANDARD [...] % Specimen Performing Laboratory Blood - Arm, [address] [address] Narrative CK-MB Reference Range: <6.7Normal 6.7-10.0Borderline >10.0 Abnormal * ECG 12 lead (12/24/2017 4:44 AM) Only the most recent of 2 results within the time period is included. Specimen Performing Laboratory [facility] Narrative Ventricular Rate 59 BPM Atrial Rate 59 BPM P-R Interval 220 ms QRS Duration 122 ms Q-T Interval 468 ms QTC Calculation(Bazett) 463 ms P [place] 79 degrees R [place] 4 degrees T [place] 30 degrees Sinus bradycardia with 1st degree A-V block Non-specific intra-ventricular conduction delay Borderline ECG When compared with ECG of 28-MAY-2010 13:11, No significant change was found Confirmed by MD TANI, IHAB ([id number]) on 12/24/2017 2:03:57 PM Procedure Note Interface, External Ris In - 12/24/2017 2:04 PM CDT Ventricular Rate 59 BPM Atrial Rate 59 BPM P-R Interval 220 ms QRS Duration 122 ms Q-T Interval 468 ms QTC Calculation(Bazett) 463 ms P [place] 79 degrees R [place] 4 degrees T [place] 30 degrees Sinus bradycardia with 1st degree [...] sinus rhythm. Abnormal conduction noted: 1st degree. [place] is normal. Clinical Impression: non-specific ECGECG reviewed [...] MD Report Verified Date/Time:12/23/2017 20:32:18 Reading Location: [address] Consult Reading Room Procedure Note Interface, External [...] Report Verified Date/Time: 12/23/2017 20:32:18 Reading Location: [facility] [id number] Consult Reading Room * B-type natriuretic peptide (12/23/2017 8:09 PM) Component Value Ref Range BNP 19 0 - 100 pg/mL Specimen Performing Laboratory Blood [address] [address] * Magnesium (12/23/2017 8:09 PM) Component Value Ref Range Magnesium 2.3 1.6 - 2.6 mg/dL Specimen Performing Laboratory Blood [address] [address] * Basic Metabolic Panel (12/23/2017 8:09 PM) [...] FOR DIALYSIS PATIENTS. Specimen Performing Laboratory Blood [address] [address] after 05/01/2017
== END | disposition home or self-care (01) ==
LOC: OR 08:53
PROVIDERS: ATTEND Internal Medicine Gastroenterology
DX: Z12.11 Encounter for screening for malignant neoplasm of colon (principal); D12.4 Benign neoplasm of descending colon; K31.7 Polyp of stomach and duodenum; K29.70 Gastritis, unspecified, without bleeding; K22.2 Esophageal obstruction; K51.50 Left sided colitis without complications; K64.8 Other hemorrhoids; K20.9 Esophagitis, unspecified; K21.9 Gastro-esophageal reflux disease without esophagitis; E11.9 Type 2 diabetes mellitus without complications; M79.7 Fibromyalgia; J45.909 Unspecified asthma, uncomplicated; I10 Essential (primary) hypertension; F41.9 Anxiety disorder, unspecified; Z88.8 Allergy status to other drugs, medicaments and biological substances; Z88.6 Allergy status to analgesic agent; Z91.041 Radiographic dye allergy status; Z01.810 Encounter for preprocedural cardiovascular examination; Z01.812 Encounter for preprocedural laboratory examination; Z79.01 Long term (current) use of anticoagulants; Z95.810 Presence of automatic (implantable) cardiac defibrillator
CPT/HCPCS: 36415; 43239; 43450; 45380; 45384; 85025; 93005; J1980; J2250; 45378

== ENCOUNTER → 2020-10-16 | Day surgery (SDC) | payer OTHER ==
[2020-10-11 14:13] LABS: BASOPHILS % 0.6 % (0.0-1.0); EOSINOPHILS # (AUTO) 0.2 (0.0-0.4); HEMATOCRIT 39.3 % (34.2-44.1); LYMPHOCYTES # (AUTO) 1.8 (1.0-3.2); LYMPHOCYTES % 36.1 % (18.0-39.1); MEAN CORPUSCULAR HEMOGLOBIN 30.4 pg (28-32); MEAN CORPUSCULAR HGB CONC 33.1 g/dL (31-35); MONOCYTES # (AUTO) 0.5 (0.2-0.8); MONOCYTES % 9.3 % (4.4-11.3); NEUTROPHILS # (AUTO) 2.5 (2.1-6.9); NEUTROPHILS % 49.8 % (38.7-80.0); PLATELET COUNT 258 x10e3/uL (140-360); RED BLOOD COUNT 4.27 x10e6/uL (3.6-5.1); RED CELL DISTRIBUTION WIDTH 12.7 % (11.7-14.4)
[~2020-10-16] MED LIST changes: -EPHEDRINE SULFATE INJ 50 MG/10 ML SYR ONE; +EPHEDRINE SULFATE INJ 50 MG/ML VIAL ONE; +FLONASE ALLERG9.9 ML INH; +LIDOCAINE HCL 2% LOCAL INJ 5 ML SDV VIAL INJ ONE; +LISINOPRIL10 MG PO; +METOCLOPRAMIDE HCL 10 MG/2ML VIAL ONE; +MIDAZOLAM HCL 2 MG/2 ML VIAL ONE; -MIDAZOLAM HCL 5 MG/ML VIAL ONE; +PANTOPRAZOLE 40 MG 10ML VIAL ONE; -PHENERGAN25 M3 PO; +PHENERGAN25 M3 RC; +PROPOFOL IV EMULSION 10 MG/ML 20 ML VIAL ONE; -PROPOFOL IV EMULSION 10 MG/ML 50 ML VIAL ONE
[2020-10-16 13:48] LABS: INR 0.95; PROTHROMBIN TIME 13.2 seconds (11.9-14.5)
[2020-10-16 13:49] LABS: PARTIAL THROMBOPLASTIN TIME 30.6 seconds (23.8-35.5)
[2020-10-16 18:20] VITALS: BP 127/88
[2020-10-16 18:42] LABS: WBC,FECAL (FECAL LACTOFERRIN) NEGATIVE (NEGATIVE)
[2020-10-17 12:50] LABS: C DIFFICILE TOXIN A&B AMP PROB NEGATIVE (NEGATIVE)
== END | disposition home or self-care (01) ==
LOC: OR 12:47
PROVIDERS: ATTEND Internal Medicine Gastroenterology
DX: K20.90 Esophagitis, unspecified without bleeding (principal); D12.2 Benign neoplasm of ascending colon; K31.7 Polyp of stomach and duodenum; K29.50 Unspecified chronic gastritis without bleeding; K51.50 Left sided colitis without complications; K31.89 Other diseases of stomach and duodenum; K62.89 Other specified diseases of anus and rectum; K64.8 Other hemorrhoids; I44.0 Atrioventricular block, first degree; M79.7 Fibromyalgia; G43.909 Migraine, unspecified, not intractable, without status migrainosus; J45.909 Unspecified asthma, uncomplicated; R00.1 Bradycardia, unspecified; I47.9 Paroxysmal tachycardia, unspecified; I10 Essential (primary) hypertension; E78.5 Hyperlipidemia, unspecified; I25.10 Atherosclerotic heart disease of native coronary artery without angina pectoris; I34.1 Nonrheumatic mitral (valve) prolapse; E11.9 Type 2 diabetes mellitus without complications; K76.0 Fatty (change of) liver, not elsewhere classified; M06.9 Rheumatoid arthritis, unspecified; Z88.8 Allergy status to other drugs, medicaments and biological substances; Z91.041 Radiographic dye allergy status; Z88.6 Allergy status to analgesic agent; Z88.1 Allergy status to other antibiotic agents; Z01.810 Encounter for preprocedural cardiovascular examination; Z01.812 Encounter for preprocedural laboratory examination; Z79.01 Long term (current) use of anticoagulants; Z68.28 Body mass index [BMI] 28.0-28.9, adult; Z86.16 Personal history of COVID-19; Z95.810 Presence of automatic (implantable) cardiac defibrillator; Z80.0 Family history of malignant neoplasm of digestive organs
CPT/HCPCS: 36415 ×2; 43239; 43251; 43450; 45380; 45385; 82948; 83630; 83993; 85025; 85610; 85730; 87045; 87177; 87328; 87493; 93005; C9113; J1980; J2001; J2250; J2704; J2765; J3010; 45378; 45384

== ENCOUNTER → 2024-04-07 | Day surgery (SDC) | payer MEDICARE, OTHER ==
[2024-04-04 12:16] LABS: BASOPHILS % 0.8 % (0.0-1.0); EOSINOPHILS # (AUTO) 0.2 (0.0-0.4); EOSINOPHILS % 3.3 % (0.0-6.0); HEMATOCRIT 37.6 % (34.2-44.1); HEMOGLOBIN 12.3 g/dL (12.0-16.0); LYMPHOCYTES # (AUTO) 1.8 (1.0-3.2); LYMPHOCYTES % 36.4 % (18.0-39.1); MEAN CORPUSCULAR HEMOGLOBIN 29.9 pg (28-32); MEAN CORPUSCULAR HGB CONC 32.7 g/dL (31-35); MEAN CORPUSCULAR VOLUME 91.3 fL (81-99); MONOCYTES # (AUTO) 0.4 (0.2-0.8); MONOCYTES % 8.7 % (4.4-11.3); NEUTROPHILS # (AUTO) 2.5 (2.1-6.9); NEUTROPHILS % 50.6 % (38.7-80.0); PLATELET COUNT 240 x10e3/uL (140-360); RED BLOOD COUNT 4.12 x10e6/uL (3.6-5.1); RED CELL DISTRIBUTION WIDTH 13.1 % (11.7-14.4); WHITE BLOOD COUNT 4.92 x10e3/uL (4.8-10.8)
[~2024-04-07] MED LIST changes: +ACIPHEX20 MG PO; +ADVAIR 250-501 EACH INH; +AMLODIPINE BES2.5 MG PO; -EPHEDRINE SULFATE INJ 50 MG/ML VIAL ONE; +GLIPIZIDE ER5 MG PO; -HYOSCYAMINE SULFATE 0.5 MG/ML INJ ONE; +MELATONIN10 M1; -METOCLOPRAMIDE HCL 10 MG/2ML VIAL ONE; -MIDAZOLAM HCL 2 MG/2 ML VIAL ONE; +NEURONTIN300 MG PO; +ONDANSETRON HCL INJ 2MG/ML 2ML 2 MG/ML VIAL ONE; -PANTOPRAZOLE 40 MG 10ML VIAL ONE
[2024-04-07] MEDS: LACTATED RINGER'S 1,000 ML ONE (14:07)
[2024-04-07 16:50] VITALS: BP 131/70; PULSE 78; RESP 17; TEMP 97; O2SAT 97
== END | disposition home or self-care (01) ==
LOC: ENDO 12:43
PROVIDERS: ATTEND Internal Medicine Gastroenterology
DX: K20.90 Esophagitis, unspecified without bleeding (principal); K31.7 Polyp of stomach and duodenum; K29.50 Unspecified chronic gastritis without bleeding; K21.9 Gastro-esophageal reflux disease without esophagitis; Z86.010 Personal history of colon polyps; J45.909 Unspecified asthma, uncomplicated; I10 Essential (primary) hypertension; M06.9 Rheumatoid arthritis, unspecified; E78.5 Hyperlipidemia, unspecified; I34.1 Nonrheumatic mitral (valve) prolapse; E11.9 Type 2 diabetes mellitus without complications; I49.9 Cardiac arrhythmia, unspecified; Z88.6 Allergy status to analgesic agent; Z88.8 Allergy status to other drugs, medicaments and biological substances; Z01.810 Encounter for preprocedural cardiovascular examination; Z01.812 Encounter for preprocedural laboratory examination; Z79.84 Long term (current) use of oral hypoglycemic drugs; Z79.899 Other long term (current) drug therapy; Z68.26 Body mass index [BMI] 26.0-26.9, adult; Z95.0 Presence of cardiac pacemaker; Z80.0 Family history of malignant neoplasm of digestive organs
CPT/HCPCS: 36415; 43239; 43251; 43450; 85025; 88305; 88342; 93005; J2001; J2405; J2470; J2704; J3010; J7121